=== PATIENT | female | born 1950 | race Caucasian/White ===

== ENCOUNTER → 2016-06-23 | Outpatient (CLI) | payer OTHER ==
--- NOTE | 2016-06-23 15:43 | MAMMOGRAPHY REPORT ---
BILATERAL DIGITAL SCREENING MAMMOGRAM WITH CAD: 06/23/2016 CLINICAL HISTORY: Routine screening. Patient has no complaints. TECHNIQUE: Bilateral CC and MLO views were obtained. Current study was also evaluated with a Comput er Aided Detection (CAD) system. COMPARISON: Comparison is made to exams dated: 05/24/2015 mammogram, 04/05/2014 mammogram, 02/14/2013 mammogram - [facility], 09/16/2009 mammogram, and 07/27/2008 mammogram. BREAST COMPOSITION: There are scattered areas of fibroglandular density in both breasts. FINDINGS: There are benign calcifications in the left breast. A lobulated and circumscribed 6 mm ma ss in the lower inner anterior left breast appears stable in size dating back to at least 09/16/2009 , therefore likely benign. No suspicious mass, architectural distortion or cluster of microcalcific ations is seen. IMPRESSION: ACR BI-RADS CATEGORY 1: NEGATIVE There is no mammographic evidence of malignancy. A 1 year screening mammogram is recommended. The p atient will receive written notification of the results. Approximately 10% of breast cancers are not detected with mammography. A negative mammographic repor t should not delay biopsy if a clinically suggestive mass is present. Jordyn Acevedo M.D. ay/:06/23/2016 15:20:02 Gasoline Service Attendant: Gabbi SHETTY)(Rebekah), [facility] letter sent: Normal 1/2 BI-RADS Code: ACR BI-RADS Category 1: Negative
== END | disposition home or self-care (01) ==
LOC: C.MAMM 09:45
PROVIDERS: ATTEND Internal Medicine
DX: Z12.31 Encounter for screening mammogram for malignant neoplasm of breast (principal)

== ENCOUNTER → 2016-07-28 | Outpatient (CLI) | payer OTHER | END | disposition home or self-care (01) | LOC: C.MAMM 12:49 | PROVIDERS: ATTEND Internal Medicine | DX: M81.0 Age-related osteoporosis without current pathological fracture (principal) ==

== ENCOUNTER → 2016-09-01 | Outpatient (CLI) | payer OTHER ==
[2016-09-01 10:36] LABS: CREATININE 0.88 mg/dl (0.60-1.20)
[2016-09-01 10:57] LABS: CALCIUM URINE < 5.0 mg/dl; URINE COLLECTION TIME 24 HOURS
[2016-09-02 20:53] LABS: ALBUMIN 4.4 G/DL (3.8-4.8); GAMMA GLOBULIN 0.9 G/DL (0.8-1.7); TOTAL PROTEIN 6.7 G/DL (6.2-8.3)
== END | disposition home or self-care (01) ==
LOC: C.LAB 09:21
PROVIDERS: ATTEND Internal Medicine Rheumatology
DX: E55.9 Vitamin D deficiency, unspecified (principal); M81.0 Age-related osteoporosis without current pathological fracture

== ENCOUNTER → 2016-10-07 | Outpatient (CLI) | payer OTHER ==
--- NOTE | 2016-10-07 15:15 | DIAGNOSTIC IMAGING REPORT ---
RIGHT ANKLE MIN 3 VIEWS ROUTINE CLINICAL HISTORY: M67.971 Achilles tendon disorder, right-sided soft tissue swelling COMPARISON: None. DISCUSSION: No fractures or dislocations are visualized. On the lateral view, there is suspected mild thickening of the Achilles. This may indicate an Achilles tendinopathy. IMPRESSION: Suspected mild thickening of the Achilles tendon. No bony abnormalities identified. Electronically signed by: Paul Anaya M.D. 10/07/2016 3:14 PM Dictated Date/Time: 10/07/2016 3:12 PM
== END | disposition home or self-care (01) ==
LOC: C.RAD1850 14:53
PROVIDERS: ATTEND Internal Medicine
DX: M67.971 Unspecified disorder of synovium and tendon, right ankle and foot (principal)

== ENCOUNTER → 2016-10-12 | Outpatient (CLI) | payer OTHER ==
--- NOTE | 2016-10-12 13:09 | DIAGNOSTIC IMAGING REPORT ---
EXTREMITY NONVASCULAR LIMITED CLINICAL HISTORY: M67.971 Achilles tendon disorder, right right achilles tendon TECHNIQUE: Ultrasound COMPARISON STUDY: 10/07/2016 FINDINGS: Moderate edematous change of the right Achilles tendon. This is seen over a linear extension of 2 cm superior to the calcaneus. This suggestive of tendinitis/tendinopathy. Simple edematous change may also present in this fashion. The does not appear to be tendinous disruption. IMPRESSION: Findings consistent with a focal tendinopathy/edematous change of the Achilles tendon. This study does not exclude the possibility of a partial intrasubstance tear. The above report was generated using voice recognition software. It may contain grammatical, syntax or spelling errors. Electronically signed by: Carlos Barkley M.D. 10/12/2016 1:08 PM Dictated Date/Time: 10/12/2016 1:04 PM
--- NOTE | 2016-10-16 13:08 | CODING QUERY MEDICAL NECESSITY ---
CQSUPPORTING DIAGNOSIS NEEDED A supporting diagnosis is required for the test/procedure performed on this patient in order for us to be reimbursed by the patient's insurance. Please provide a supporting diagnosis for the following test/procedure listed below next to the test name along with your signature. *If there is no additional diagnosis for this patient that would support the following test/procedure please document that below next to the test/procedure. Test(s)/Procedure(s) that require a supporting diagnosis: DOS 10/12/16 NON-VASCULAR EXTREMITY ULTRASOUND Provider Signature: Date: Thank you Mildred Gleason Health Information Management Once completed, please kindly fax back to [phone] For questions please call [phone]
== END | disposition home or self-care (01) ==
LOC: C.ULTR 12:32
PROVIDERS: ATTEND Internal Medicine
DX: M67.971 Unspecified disorder of synovium and tendon, right ankle and foot (principal); S86.011A Strain of right Achilles tendon, initial encounter; X58.XXXA Exposure to other specified factors, initial encounter

== ENCOUNTER → 2016-10-15 | Outpatient (CLI) | payer OTHER ==
--- NOTE | 2016-10-15 14:35 | DIAGNOSTIC IMAGING REPORT ---
RIGHT LOWER EXT JOINT WITHOUT CLINICAL HISTORY: 66 years-old Female presenting with RT ACHILLES TENDON,PARTIAL TEAR, no injury, deformity of distal ankle, marker on region of interest. TECHNIQUE: Multisequence, multiplanar MR imaging of the right ankle was performed without the use of intravenous contrast. IV contrast: None. COMPARISON: Plain radiographs of the right ankle from 10/07/2016. FINDINGS: Localizer images: Unremarkable. No bony edema. Ankle mortise intact. Degenerative change partially visualized at the first metatarsophalangeal joint. No other significant degenerative change. Previously noted mild apparent thickening of the Achilles tendon 3 to 4 cm proximal to the insertion at the posterior calcaneus is again noted there is however no abnormal signal intensity of the tendon to suggest tear. Minimal infiltration of Kager's fat pad. Posterior tendons including the tibialis posterior, flexor digitorum longus, and flexor hallucis longus intact. Anterior tendons including the tibialis anterior, extensor hallucis longus, and extensor digitorum longus intact. Peroneus brevis and longus tendons intact. Small volume ankle effusion. Cystic change posterior to the posterior talofibular ligaments likely ganglion cyst. Increased signal intensity at the fibular insertion of the posterior talofibular ligament without retraction. Anterior talofibular ligament intact. Deltoid ligament intact. No abnormal signal intensity within the sinus tarsi. No abnormal thickening of the plantar fascia. IMPRESSION: 1. Thickening without abnormal signal intensity of the Achilles tendon may suggest mild tendinosis. No partial or complete tear. 2. Partial tear of the posterior talofibular ligament at the fibular insertion site with associated posterior ganglion cyst. 3. Degenerative changes of the first metatarsophalangeal joint. Electronically signed by: Avni Nina M.D. 10/15/2016 2:34 PM Dictated Date/Time: 10/15/2016 2:16 PM
== END | disposition home or self-care (01) ==
LOC: C.MRI 13:18
PROVIDERS: ATTEND Internal Medicine
DX: M67.971 Unspecified disorder of synovium and tendon, right ankle and foot (principal); S86.011A Strain of right Achilles tendon, initial encounter; X58.XXXA Exposure to other specified factors, initial encounter

== ENCOUNTER → 2017-07-21 | Outpatient (CLI) | payer OTHER ==
--- NOTE | 2017-07-21 15:45 | MAMMOGRAPHY REPORT ---
BILATERAL DIGITAL SCREENING MAMMOGRAM TOMOSYNTHESIS WITH CAD: 07/21/2017 CLINICAL HISTORY: Routine screening. Patient has no complaints. TECHNIQUE: Breast tomosynthesis in addition to standard 2D mammography was performed. Current study was also evaluated with a Computer Aided Detection (CAD) system. COMPARISON: Comparison is made to exams dated: 06/23/2016 mammogram, 05/24/2015 mammogram, 04/05/2014 tana mogram, 02/14/2013 mammogram - [facility], 09/16/2009 mammogram, and 07/27/2008 mammog mukesh. BREAST COMPOSITION: There are scattered areas of fibroglandular density in both breasts. FINDINGS: No suspicious masses, calcifications, or areas of architectural distortion are noted in ei ther breast. There has been no significant interval change compared to prior exams. IMPRESSION: ACR BI-RADS CATEGORY 1: NEGATIVE There is no mammographic evidence of malignancy. A 1 year screening mammogram is recommended. The pa tient will receive written notification of the results. Approximately 10% of breast cancers are not detected with mammography. A negative mammographic report should not delay biopsy if a clinically suggestive mass is present. Henrietta Yañez M.D. ah/:07/21/2017 12:29:52 Senior Facilities Manager: Oumou PABON(Chelita)(M), [facility] letter sent: Normal 1/2 BI-RADS Code: ACR BI-RADS Category 1: Negative
== END | disposition home or self-care (01) ==
LOC: C.MAMM 12:07
PROVIDERS: ATTEND Internal Medicine
DX: Z12.31 Encounter for screening mammogram for malignant neoplasm of breast (principal)

== ENCOUNTER → 2017-08-03 | Outpatient (CLI) | payer OTHER ==
[2017-08-03 13:21] LABS: ALT/SGPT 25 U/L (12-78); BLOOD UREA NITROGEN 26 mg/dl (7-18); CALCIUM 9.1 mg/dl (8.5-10.1); CARBON DIOXIDE 28 mmol/L (21-32); CHOLESTEROL 219 mg/dl (0-200); CREATININE 0.86 mg/dl (0.60-1.20); GLUCOSE 89 mg/dl (70-99); POTASSIUM 4.2 mmol/L (3.5-5.1); SODIUM 140 mmol/L (136-145)
[2017-08-03 13:24] LABS: ALKALINE PHOSPHATASE 60 U/L (45-117); AST/SGOT 14 U/L (15-37); LDL CHOLESTEROL CALCULATED 144 mg/dl; TOTAL PROTEIN 7.4 gm/dl (6.4-8.2)
== END | disposition home or self-care (01) ==
LOC: C.LAB1850 09:01
PROVIDERS: ATTEND Internal Medicine
DX: M81.0 Age-related osteoporosis without current pathological fracture (principal); Z86.39 Personal history of other endocrine, nutritional and metabolic disease; R74.8 Abnormal levels of other serum enzymes; Z11.59 Encounter for screening for other viral diseases

== ENCOUNTER 2021-03-17 07:02 | Inpatient (IN) ==
[2021-03-17 07:42] LABS: Basophils # (auto) 0.03 K/uL (0-0.2); Basophils % (auto) 0.5 %; Eosinophils # (auto) 0.17 K/uL (0-0.5); Eosinophils % (auto) 2.6 %; Hematocrit (blood only) 41.7 % (37-47); Hemoglobin 13.8 g/dL (12.0-16.0); Immature Granulocytes # (auto) 0.02 K/uL (0.00-0.02); Immature Granulocytes % (auto) 0.3 %; Lymphocytes # (auto) 1.79 K/uL (1.2-3.4); Lymphocytes % (auto) 27.7 %; Mean Corpuscular Hemoglobin 30.5 pg (25-34); Mean Corpuscular Hgb Conc 33.1 g/dL (32-36); Mean Corpuscular Volume 92.3 fL (80-100); Mean Platelet Volume 11.6 fL (7.4-10.4); Monocytes # (auto) 0.35 K/uL (0.11-0.59); Monocytes % (auto) 5.4 %; Neutrophils # (auto) 4.11 K/uL (1.4-6.5); Neutrophils % (auto) 63.5 %; Platelet Count 159 K/uL (130-400); RDW Coefficient of Variation 13.2 % (11.5-14.5); RDW Standard Deviation 44.9 fL (36.4-46.3); Red Blood Count 4.52 M/uL (4.2-5.4); White Blood Count 6.47 K/uL (4.8-10.8)
[2021-03-17] MEDS ORDERED: SODIUM CHLORIDE 0.9% 1000ML 1,000 ML IV SCH (07:45)
--- NOTE | 2021-03-17 07:49 | Emergency Department Note ---
Impression & Plan Bradycardia, Mobitz type 2 second degree atrioventricular block, CHB (complete heart block) ED Provider Note INFORMANT: Patient and ED PROVIDER(S): Dada Harrington MD CHIEF COMPLAINT: Bradycardia PLAN: Disposition: Admitted Condition: Guarded Outpatient prescription management: None Referral: None MEDICAL DECISION MAKING: Patient presented because of bradycardia. ECG showed a type II block and monitoring revealed what appeared to be a complete heart block. The patient was tolerating this relatively well and was only mildly bradycardic. Consultation was placed emergently with [facility] cardiology. I discussed the case with Dr. Jamil. He agreed with the heart block and need for further management in the hospital. He feels the patient will need a pacemaker. The patient's laboratory testing was unremarkable including Lyme titer. consultation was made with Dr. Luke Quinones of the [facility] service. Patient was evaluated in the ER for further management. Triage Nursing notes reviewed and agree them. Vital Signs: reviewed and remarkable for no significant abnormalities Differential diagnosis: Premature contractions, electrolyte abnormality, cardiac dysrhythmia, thyroid dysfunction, pulmonary embolism, infection, gastrointestinal, Lyme disease, as well as other pathologies. Diagnostics interpreted by me: ECG: Twelve-lead ECG reveals a sinus bradycardia with a second-degree type II at [address] elevation or depression. No PVCs. Incomplete right bundle branch block present. Cardiac Monitoring: Cardiac monitoring ordered by me: The patient was placed on continuous cardiac monitoring and observed. It revealed a significant bradycardia with a second-degree type II transitioning to complete heart block and back. Imaging studies: Chest x-ray. Findings: A chest x-ray was performed and revealed no pneumothorax, effusion, infiltrate, pulmonary edema, free air under the diaphragm, or wide mediastinum. Impression: No acute disease. HPI: The patient is a 71 year old female who presents to the Emergency Room with complaints of bradycardia. This started about 2 weeks ago and is persisting. The patient also notes the following associated symptoms, exertional shortness of breath and lightheadedness. The patient has noted rest as factors. Current pain is rated as 0/10. Patient did note some chest heaviness this morning. Pt denies LOC, headache, fevers, chills, diaphoresis, visual changes, neck pain, chest pain, nausea, vomiting, abdominal pain, back pain, melena, hematochezia, urinary symptoms, numbness, weakness, lymphadenopathy, rash, or other complaints. ROS: See above HPI for pertinent positives & negatives. A total of 10 systems reviewed and were otherwise negative. PAST MEDICAL HISTORY:See Below , high cholesterol, valvular heart disease PAST SURGICAL HISTORY:See Below, FAMILY HISTORY:See Below SOCIAL HISTORY:See Below, HOME MEDICATIONS:See Below ALLERGIES:See Below VITALS:See Below PHYSICAL EXAMINATION: GENERAL: Awake, alert, well-appearing, in no distress HENT: Normocephalic, atraumatic. Oropharynx unremarkable. EYES: Normal conjunctiva. Sclera non-icteric. NECK: Inspection normal. Non-tender. Supple. No nuchal rigidity. FROM. No masses. RESPIRATORY: Clear to auscultation. No wheezes. No rales. Normal respiratory effort. CARDIAC: Normal rate. Normal rhythm. Systolic ejection murmur. No rubs. Extremities warm and well perfused. Pulses equal. No JVD. GI: Soft, non-distended. No tenderness to palpation. No rebound or guarding. No masses. RECTAL: Deferred. MUSCULOSKELETAL: Atraumatic. Chest examination reveals no tenderness. The back is symmetrical on inspection without obvious abnormality. There is no CVA tenderness to palpation. No joint edema. LOWER EXTREMITIES: Calves are equal size bilaterally and non-tender. No edema. No discoloration. NEURO: Normal sensorium. No sensory or motor deficits noted. SKIN: No rash or jaundice noted. Dada Harrington MD Past Med/Surg History Medical History (Updated 03/17/21 @ 16:01 by Dada Harrington MD) Acne Bilateral renal cysts Cyst of kidney, acquired Didelphic uterus Elevated alkaline phosphatase level History of hyperlipidemia Leg length discrepancy Nocturia Osteopenia Osteoporosis Osteoporosis Partial tear of right Achilles tendon Pharyngeal disease Spinal stenosis, lumbar region without neurogenic claudication Vitamin D deficiency Surgical History H/O lymph node excision History of arthroscopy of right knee meniscus repair History of cholecystectomy History of colonoscopy History of dilatation and curettage History of tonsillectomy History of wisdom tooth extraction Family History Aunt Breast cancer Father Myocardial infarction Hypertension Heart disease Brother Myocardial infarction Hypertension Heart disease Family/Other Myocardial infarction Mother Hearing loss Other No family history of adverse response to anesthesia Denies family history of Ovarian cancer Prostate cancer Colorectal cancer Social History Smoking Status: Never smoker Second Hand Exposure: No; Hx Alcohol Use: Yes Alcohol type: wine Alcohol Intake Frequency: 2-4 x/Month Hx Substance Use: No Preferred Language: [place] Communication Ability: Effective Visual Impairment: Diminished Hearing Ability: Normal 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 Required: No Beliefs That Will Affect Care: None marital status: Current Living Situation: Spouse current occupational status: retired Feels Safe at Home: Yes Childhood Exposure to Second-Hand Smoke: Yes caffeine: Yes Dental Care, Regularly: Yes Physical Activity Frequency: Daily Physical Activity Frequency Comment: garden and walking Seatbelt Use: always Sunscreen Use: Yes Do you think of yourself as: straight/heterosexual Assistive Devices: Glasses Allergies Allergies Allergy/AdvReac Type Severity Reaction Status Date / Time No Known Drug Allergies Allergy Verified 03/17/21 08:28 pineapple Allergy Verified 03/17/21 08:28 Home Meds Home Medications Medication Instructions Recorded Confirmed Ca 600 mg-D3 800 unit-magnes 40 1 tab PO HS 06/16/18 03/17/21 il-jode-rwl-aria-boron chewable tablet (Caltrate 600-D Plus Minerals) gmwzjxil-ncr-cmbp-FA-Ca carb-vit K 1 tab PO QAM 06/16/18 03/17/21 18 mg iron-400 mcg-500 mg tablet (Women's Multivitamin) metronidazole 0.75 % topical cream 1 applic TOPICAL BID PRN gm 02/22/20 03/17/21 krill oil 500 mg capsule 0 mg PO DAILY 03/17/21 03/17/21 Previous Rx's Medication Instructions Recorded rosuvastatin 5 mg tablet 5 mg PO DAILY #90 tab 07/24/20 ibandronate 150 mg tablet (Boniva) 150 mg PO MONTHLY #3 tab 08/30/20 Results & Data (ED) Vital Signs Vital Signs - 24 hr 03/17/21 07:08 03/17/21 07:35 03/17/21 08:30 Temperature 36.5 C Temperature Source Oral Pulse Rate 46 L 41 L Pulse Rate [Apical] 39 L Pulse Rhythm [Apical] Irregular Respiratory Rate 18 16 16 Respiratory Effort / Characteristics Non-Labored Respiratory Depth Normal Blood Pressure 200/73 H 178/66 H Blood Pressure [Right Arm] 197/83 H Blood Pressure Mean 115 103 Blood Pressure Mean [Right Arm] 121 Pulse Oximetry 98 100 98 Oxygen Delivery Method Room Air Room Air Room Air Sepsis Recent Fever Within 48 Hours No Sepsis New/Unexplained Change in Mental Status No Sepsis Action Taken by Nursing No Action Required 03/17/21 09:00 03/17/21 09:30 Temperature Temperature Source Pulse Rate 36 L Pulse Rate [Apical] 38 L Pulse Rhythm [Apical] Respiratory Rate 16 16 Respiratory Effort / Characteristics Non-Labored Respiratory Depth Normal Blood Pressure 165/62 H Blood Pressure [Right Arm] 129/80 Blood Pressure Mean 96 Blood Pressure Mean [Right Arm] 96 Pulse Oximetry 99 97 Oxygen Delivery Method Room Air Room Air Sepsis Recent Fever Within 48 Hours Sepsis New/Unexplained Change in Mental Status Sepsis Action Taken by Nursing Laboratory Data Result diagrams: 03/17/21 07:30 03/17/21 07:30 Lab Results 03/17/21 03/17/21 03/17/21 Range/Units 07:30 07:30 07:30 WBC 6.47 (4.8-10.8) K/uL RBC 4.52 (4.2-5.4) M/uL Hgb 13.8 (12.0-16.0) g/dL Hct 41.7 (37-47) % MCV 92.3 (80-100) fL MCH 30.5 (25-34) pg MCHC 33.1 (32-36) g/dL RDW Std Deviation 44.9 (36.4-46.3) fL RDW Coeff of Lesly 13.2 (11.5-14.5) % Plt Count 159 (130-400) K/uL MPV 11.6 H (7.4-10.4) fL Immature Gran % (Auto) 0.3 % Neut % (Auto) 63.5 % Lymph % (Auto) 27.7 % Boyd % (Auto) 5.4 % Eos % (Auto) 2.6 % Baso % (Auto) 0.5 % Neut # (Auto) 4.11 (1.4-6.5) K/uL Lymph # (Auto) 1.79 (1.2-3.4) K/uL Boyd # (Auto) 0.35 (0.11-0.59) K/uL Eos # (Auto) 0.17 (0-0.5) K/uL Baso # (Auto) 0.03 (0-0.2) K/uL Immature Gran # (Auto) 0.02 (0.00-0.02) K/uL Sodium 140 (136-145) mmol/L Potassium 4.1 (3.5-5.1) mmol/L Chloride 109 H (98-107) mmol/L Carbon Dioxide 27 (21-32) mmol/L Anion Gap 4.0 (3-11) BUN 23 H (7-18) mg/dl Creatinine 1.02 (0.6-1.2) mg/dl Est Cr Clr Drug Dosing 41.2 ml/min Est GFR ( Amer) 63.6 ml/min Est GFR (Non-Af Amer) 54.9 ml/min BUN/Creatinine Ratio 22.6 H (10-20) Glucose 100 H (70-99) mg/dl Calcium 9.8 (8.5-10.1) mg/dl Magnesium 2.6 H (1.8-2.4) mg/dl Total Bilirubin 0.6 (0.2-1) mg/dl AST 53 H (15-37) U/L ALT 114 H (12-78) Alkaline Phosphatase 82 (45-117) U/L Troponin I < 0.015 (0-0.045) ng/ml Total Protein 7.6 (6.4-8.2) gm/dl Albumin 4.2 (3.4-5.0) gm/dl Globulin 3.4 (2.5-4.0) gm/dl Albumin/Globulin Ratio 1.2 (0.9-2) TSH 1.490 (0.300-4.500) uIu/ml Urine Color Urine Appearance (Clear) Urine pH (4.5-7.5) Ur Specific Haskins (1.000-1.030) Urine Protein (Negative) Urine Glucose (UA) (Negative) Urine Ketones (Negative) Urine Blood (Negative) Urine Nitrite (Negative) Urine Bilirubin (Negative) Urine Urobilinogen (Negative) Ur Leukocyte Esterase (Negative) Lyme Disease IgG Ab Negative (Negative) Lyme Disease IgM Ab Negative (Negative) SARS-CoV-2, RNA, NAAT (NEGATIVE) 12/27/21 12/27/21 Range/Units 07:40 09:05 WBC (4.8-10.8) K/uL RBC (4.2-5.4) M/uL Hgb (12.0-16.0) g/dL Hct (37-47) % MCV (80-100) fL MCH (25-34) pg MCHC (32-36) g/dL RDW Std Deviation (36.4-46.3) fL RDW Coeff of Lesly (11.5-14.5) % Plt Count (130-400) K/uL MPV (7.4-10.4) fL Immature Gran % (Auto) % Neut % (Auto) % Lymph % (Auto) % Boyd % (Auto) % Eos % (Auto) % Baso % (Auto) % Neut # (Auto) (1.4-6.5) K/uL Lymph # (Auto) (1.2-3.4) K/uL Boyd # (Auto) (0.11-0.59) K/uL Eos # (Auto) (0-0.5) K/uL Baso # (Auto) (0-0.2) K/uL Immature Gran # (Auto) (0.00-0.02) K/uL Sodium (136-145) mmol/L Potassium (3.5-5.1) mmol/L Chloride (98-107) mmol/L Carbon Dioxide (21-32) mmol/L Anion Gap (3-11) BUN (7-18) mg/dl Creatinine (0.6-1.2) mg/dl Est Cr Clr Drug Dosing ml/min Est GFR ( Amer) ml/min Est GFR (Non-Af Amer) ml/min BUN/Creatinine Ratio (10-20) Glucose (70-99) mg/dl Calcium (8.5-10.1) mg/dl Magnesium (1.8-2.4) mg/dl Total Bilirubin (0.2-1) mg/dl AST (15-37) U/L ALT (12-78) Alkaline Phosphatase (45-117) U/L Troponin I (0-0.045) ng/ml Total Protein (6.4-8.2) gm/dl Albumin (3.4-5.0) gm/dl Globulin (2.5-4.0) gm/dl Albumin/Globulin Ratio (0.9-2) TSH (0.300-4.500) uIu/ml Urine Color Yellow Urine Appearance Clear (Clear) Urine pH 8.0 H (4.5-7.5) Ur Specific Haskins 1.008 (1.000-1.030) Urine Protein Negative (Negative) Urine Glucose (UA) Negative (Negative) Urine Ketones Negative (Negative) Urine Blood Negative (Negative) Urine Nitrite Negative (Negative) Urine Bilirubin Negative (Negative) Urine Urobilinogen Negative (Negative) Ur Leukocyte Esterase Negative (Negative) Lyme Disease IgG Ab (Negative) Lyme Disease IgM Ab (Negative) SARS-CoV-2, RNA, NAAT NEGATIVE (NEGATIVE) Administered Medications Discontinued Medications Cefazolin Sodium (Cefazolin 250 Mg/Ml 1 Gm Vial) Confirm Administered Dose 1,000 mg .ROUTE .STK-MED ONE Stop: 03/17/21 10:50 Last Admin: 03/17/21 11:58 Dose: 1,000 mg Documented by: [id number] Fentanyl Citrate (Fentanyl Citrate 100 Mcg/2 Ml Vial) Confirm Administered Dose 100 mcg .ROUTE .STK-MED ONE Stop: 03/17/21 10:50 Last Admin: 03/17/21 11:58 Dose: 100 mcg Documented by: [id number] Sodium Chloride (Nss 1000ml) 1,000 mls @ 125 mls/hr IV .Q8H ERASMO Stop: 03/17/21 15:44 Last Admin: 03/17/21 07:50 Dose: 125 mls/hr Documented by: [id number] Midazolam HCl (Midazolam Hcl 5 Mg/Ml 1 Ml Vial) Confirm Administered Dose 5 mg .ROUTE .STK-MED ONE Stop: 03/17/21 10:50 Last Increment: 03/17/21 11:58 Dose: 4 mg Documented by: [id number] Imaging Data Radiologist's Impression: Chest X-Ray 03/17/21 07:32 XR chest 1V portable CLINICAL HISTORY: bradycardia COMPARISON STUDY: No previous studies for comparison. FINDINGS: Lung volumes are normal. Lungs are clear. A nodular density projecting over the left lower lung favors a nipple shadow. There is no pneumothorax or pleural effusion. Cardiac size is normal. Mediastinal contours are normal. There is no evidence for pulmonary edema. IMPRESSION: No acute cardiopulmonary findings. ACT 112: Negative or not required by law. Electronically signed by: Radu Allison M.D. 03/17/2021 7:52 AM Discharge Plan Visit Data Chief Complaint: Hypotension Stated Complaint: LOW BLOOD PRESSURE,LOW PULSE,TROUBLE BREATHING ED Provider: Dada Harrington Discharge Problem: Bradycardia, Mobitz type 2 second degree atrioventricular block, CHB (complete heart block) Patient Disposition: Admitted As Inpatient
--- NOTE | 2021-03-17 07:54 | XRay Report ---
XR chest 1V portable CLINICAL HISTORY: bradycardia COMPARISON STUDY: No previous studies for comparison. FINDINGS: Lung volumes are normal. Lungs are clear. A nodular density projecting over the left lower lung favors a nipple shadow. There is no pneumothorax or pleural effusion. Cardiac size is normal. Me diastinal contours are normal. There is no evidence for pulmonary edema. IMPRESSION: No acute cardiopulmonary findings. ACT 112: Negative or not required by law. Electronically signed by: Radu Allison M.D. 03/17/2021 7:52 AM
[2021-03-17 08:00] LABS: Alanine Aminotransferase 114 (12-78); Albumin Level 4.2 gm/dl (3.4-5.0); Aspartate Aminotransferase 53 U/L (15-37); BUN Creatinine Ratio 22.6 (10-20); Blood Urea Nitrogen 23 mg/dl (7-18); Calcium 9.8 mg/dl (8.5-10.1); Carbon Dioxide 27 mmol/L (21-32); Chloride 109 mmol/L (98-107); Creatinine Clr Calc Pharmacy 41.2 ml/min; Est GFR (African American) 63.6 ml/min; Est GFR (Non-African American) 54.9 ml/min; Glucose 100 mg/dl (70-99); Magnesium 2.6 mg/dl (1.8-2.4); Potassium 4.1 mmol/L (3.5-5.1); Sodium 140 mmol/L (136-145)
[2021-03-17 08:11] LABS: Albumin Globulin Ratio 1.2 (0.9-2); Alkaline Phosphatase 82 U/L (45-117); Bilirubin,Total 0.6 mg/dl (0.2-1); Globulin 3.4 gm/dl (2.5-4.0); Total Protein 7.6 gm/dl (6.4-8.2); Troponin I < 0.015 ng/ml (0-0.045)
[2021-03-17 08:27] LABS: Lyme Ab IgG w/WB Rflx Negative (Negative); Lyme Ab IgM w/WB Rflx Negative (Negative)
[2021-03-17 09:33] LABS: Appearance Urine Clear (Clear); Bilirubin Urine Negative (Negative); Blood Urine Negative (Negative); Color Urine Yellow; Glucose Urine UA Negative (Negative); Ketones Urine Negative (Negative); Leukocyte Esterase Urine Negative (Negative); Nitrite Urine Negative (Negative); Protein Urine Negative (Negative); Specific Gravity Urine 1.008 (1.000-1.030); Urobilinogen Urine Negative (Negative)
--- NOTE | 2021-03-17 09:43 | History & Physical Report ---
Date of Service March 17, 2021 Assessment & Plan (1) Bradycardia: Plan: mobitz II and some complete heart block, pt was eval by interventional cardiology and will have pacemaker 03/17/21. thyroid and lyme negative electrolytes replete (2) Hyperlipidemia: Plan: typically on Crestor History of Present Illness Primary Care Provider: Avni Gibbs MD 71 year old female who presents to the Emergency Room with complaints of bradycardia. This started about 2 weeks ago and is persisting. The patient also notes exertional shortness of breath and lightheadedness. Patient did note some chest heaviness on the morning of admission that has resolved. Pt denies LOC, headache, fevers, chills, diaphoresis, visual changes, neck pain, chest pain, nausea, vomiting, abdominal pain, back pain, melena, hematochezia, urinary symptoms, numbness, weakness, lymphadenopathy, rash, or other complaints . Lyme testing is negative, tsh is normal Allergies Allergy/AdvReac Type Severity Reaction Status Date / Time No Known Drug Allergies Allergy Verified 03/17/21 08:28 pineapple Allergy Verified 03/17/21 08:28 Home Medications Medication Instructions Recorded Confirmed Type Ca 600 mg-D3 800 unit-magnes 40 1 tab PO HS 06/16/18 03/17/21 History ns-eqks-ggn-aria-boron chewable tablet (Caltrate 600-D Plus Minerals) kioanieo-huy-ztlp-FA-Ca carb-vit K 1 tab PO QAM 06/16/18 03/17/21 History 18 mg iron-400 mcg-500 mg tablet (Women's Multivitamin) metronidazole 0.75 % topical cream 1 applic TOPICAL BID PRN gm 02/22/20 03/17/21 History rosuvastatin 5 mg tablet 5 mg PO DAILY #90 tab 07/24/20 03/17/21 Rx ibandronate 150 mg tablet (Boniva) 150 mg PO MONTHLY #3 tab 08/30/20 03/17/21 Rx krill oil 500 mg capsule 0 mg PO DAILY 03/17/21 03/17/21 History Past Med/Surg History Medical History (Updated 03/17/21 @ 17:15 by Adria Jamil MD) Acne Bilateral renal cysts Cyst of kidney, acquired Didelphic uterus Elevated alkaline phosphatase level History of hyperlipidemia Leg length discrepancy Nocturia Osteopenia Osteoporosis Osteoporosis Partial tear of right Achilles tendon Pharyngeal disease Spinal stenosis, lumbar region without neurogenic claudication Vitamin D deficiency Surgical History H/O lymph node excision History of arthroscopy of right knee meniscus repair History of cholecystectomy History of colonoscopy History of dilatation and curettage History of tonsillectomy History of wisdom tooth extraction Family History Aunt Breast cancer Father Myocardial infarction Hypertension Heart disease Brother Myocardial infarction Hypertension Heart disease Family/Other Myocardial infarction Mother Hearing loss Other No family history of adverse response to anesthesia Denies family history of Ovarian cancer Prostate cancer Colorectal cancer Social History Smoking Status: Never smoker Second Hand Exposure: No; Hx Alcohol Use: Yes Alcohol type: wine Alcohol Intake Frequency: 2-4 x/Month Hx Substance Use: No Preferred Language: Telugu Communication Ability: Effective Visual Impairment: Diminished Hearing Ability: Normal [employer] Required: No Beliefs That Will Affect Care: None marital status: Current Living Situation: Spouse current occupational status: retired Feels Safe at Home: Yes Childhood Exposure to Second-Hand Smoke: Yes caffeine: Yes Dental Care, Regularly: Yes Physical Activity Frequency: Daily Physical Activity Frequency Comment: garden and walking Seatbelt Use: always Sunscreen Use: Yes Do you think of yourself as: straight/heterosexual Assistive Devices: Glasses Review of Systems Review of Systems: Moderate distress and fatigue no headache, no visual changes no speech or swallowing issues Resolution of chest pain, no continued pressure or palpitations no shortness of breath at rest but some ISABEL, no cough or wheezes no abdominal pain, nausea or vomiting, diarrhea or constipation no dysuria, hematuria or frequency no focal joint pain or swelling no back pain, CVA tenderness or radicular pain no bruising, bleeding or rashes no focal signs of weakness or numbness or altered sensation no complaints of anxiety or depression.. Physical Exam Physical Exam: The patient appeared well nourished and normally developed. Vital signs as documented. Head exam is normocephalic atraumatic Neck is without JVD, thyromegaly, or carotid bruits. Lungs are clear to auscultation, no focal loss of breath sounds Cardiac exam, significantly slow rate. No murmurs, rubs or gallops. Abdominal exam reveals normal bowel sounds, soft non tender, no masses Extremities are nonedematous and both pedal pulses are present Neurologic exam is alert and oriented, no focal loss of strength or sensation Skin is without bruises or rashes Psychologically is without concerns for anxiety or depression.. Results & Data Results & Data ([facility]) Vital Signs (Past 12 Hours) Vital Signs Temp Pulse Pulse Resp BP BP Pulse Ox 03/17/21 09:00 38 L 16 129/80 99 03/17/21 08:30 41 L 16 178/66 H 98 03/17/21 07:35 39 L 16 197/83 H 100 03/17/21 07:08 97.7 F 46 L 18 200/73 H 98 PG Care Time/CCT Total # of Minutes Spent Total Time Spent with Patient: Total time spent is greater than 50% in coordination of care (as documented) at patient's floor/unit and/or counseling patient: Coding Level of Care Code 53834 Initial Inpt Care Lvl 2 Diagnoses Bradycardia R00.1 Hyperlipidemia E78.5
--- NOTE | 2021-03-17 10:20 | Cardiology Consultation ---
Date of Consultation March 17, 2021 Assessment & Plan (1) CHB (complete heart block): (2) Valvular heart disease: 1. Complete heart block: An EKG obtained the emergency room did demonstrate high-degree AV block. Most of the time and rhythm with 2-1 av block. She did report exertional intolerance which is more consistent with Mobitz 2 conduction. Lyme test was negative. It seems that she has significant AV luz marina disease causing symptomatic bradycardia. We discussed the options for treatment which generally involves a permanent pacemaker. I described the procedure in attendant risks to the patient and her and were willing to proceed later today. 2. Valvular heart disease: Mild. No symptoms. Normal LV systolic function. This can be followed over time. 3. Hyperlipidemia: Recently started on rosuvastatin. 4. Hypertension: Blood pressure high in the emergency room. Will monitor this during her admission. History of Present Illness Reason for Consultation: Bradycardia, exercise intolerance Requesting Physician: Juany Attending Physician: Joni History of Present Illness The patient is a 71-year-old woman with a history of mild valvular heart disease presented to the emergency room with symptoms of exertional intolerance. Patient states that over the past couple of days she has had some difficulty completing even minor activities. She is normally an active individual who is accustomed to routine work outside. She is able to at ascend hills and stairs without significant limitation. However, over the course of the weekend she became quite dyspneic with similar activities and had reduce her overall activity level. This more she also had some symptoms of dizziness. She was noted on monitoring at home to have a low heart rate and subsequent went to the emergency room for evaluation. At rest she is generally feeling well. She did report a sense of chest pressure earlier this morning. However this was fairly well localized to the precordium and was reproducible in nature. No breathing difficulty at rest. No sense of palpitation. Allergies Allergy/AdvReac Type Severity Reaction Status Date / Time No Known Drug Allergies Allergy Verified 03/17/21 08:28 pineapple Allergy Verified 03/17/21 08:28 Home Medications Medication Instructions Recorded Confirmed Type Ca 600 mg-D3 800 unit-magnes 40 1 tab PO HS 06/16/18 03/17/21 History vz-vllf-mqi-aria-boron chewable tablet (Caltrate 600-D Plus Minerals) xjlatlhs-iip-pgva-FA-Ca carb-vit K 1 tab PO QAM 06/16/18 03/17/21 History 18 mg iron-400 mcg-500 mg tablet (Women's Multivitamin) metronidazole 0.75 % topical cream 1 applic TOPICAL BID PRN gm 02/22/20 03/17/21 History rosuvastatin 5 mg tablet 5 mg PO DAILY #90 tab 07/24/20 03/17/21 Rx ibandronate 150 mg tablet (Boniva) 150 mg PO MONTHLY #3 tab 08/30/20 03/17/21 Rx krill oil 500 mg capsule 0 mg PO DAILY 03/17/21 03/17/21 History Patient History Medical History (Updated 03/17/21 @ 17:15 by Adria Jamil MD) Acne Bilateral renal cysts Cyst of kidney, acquired Didelphic uterus Elevated alkaline phosphatase level History of hyperlipidemia Leg length discrepancy Nocturia Osteopenia Osteoporosis Osteoporosis Partial tear of right Achilles tendon Pharyngeal disease Spinal stenosis, lumbar region without neurogenic claudication Vitamin D deficiency Surgical History H/O lymph node excision History of arthroscopy of right knee meniscus repair History of cholecystectomy History of colonoscopy History of dilatation and curettage History of tonsillectomy History of wisdom tooth extraction Family History Aunt Breast cancer Father Myocardial infarction Hypertension Heart disease Brother Myocardial infarction Hypertension Heart disease Family/Other Myocardial infarction Mother Hearing loss Other No family history of adverse response to anesthesia Denies family history of Ovarian cancer Prostate cancer Colorectal cancer Social History Smoking Status: Never smoker Second Hand Exposure: No; Hx Alcohol Use: Yes Alcohol type: wine Alcohol Intake Frequency: 2-4 x/Month Hx Substance Use: No Preferred Language: Lao Communication Ability: Effective Visual Impairment: Diminished Hearing Ability: Normal Technology Internship Required: No Beliefs That Will Affect Care: None marital status: Current Living Situation: Spouse current occupational status: retired Feels Safe at Home: Yes Childhood Exposure to Second-Hand Smoke: Yes caffeine: Yes Dental Care, Regularly: Yes Physical Activity Frequency: Daily Physical Activity Frequency Comment: garden and walking Seatbelt Use: always Sunscreen Use: Yes Do you think of yourself as: straight/heterosexual Assistive Devices: Glasses Review of Systems Review of Systems: Per HPI. No recent fevers or chills. No rashes. Some mild arthritis in the hands but no worsening joint pain recently. No lower extremity edema. Physical Exam Physical Exam: She is alert and oriented x3. Mood affect appear normal. She answered all questions appropriately. HEENT: Sclerae are anicteric. Pupils are equal and reactive to light and accommodation. Extraocular movements were intact. Neuro: Cranial nerves intact Lungs: Lungs are clear to auscultation bilaterally. There are no rales wheezes or rhonchi. She has normal respiratory effort without use of accessory muscles. There is normal pulmonary excursion. Cardiac: The rhythm was regular. S1 and S2 were normal. Crescendo systolic murmur that radiated throughout the precordium The PMI was not markedly displaced on palpation. Abdomen: The abdomen was soft and nontender. Extremities: Patient has bilateral radial pulses that are equal in intensity. There is no evidence cyanosis or clubbing. There was no evidence of significant peripheral edema bilaterally. Skin: There are no rashes noted on examination today. Results & Data ([facility]) Vital Signs (Past 12 Hours) Vital Signs Temp Pulse Pulse Resp BP BP Pulse Ox 03/17/21 10:00 38 L 16 97 03/17/21 09:30 36 L 16 165/62 H 97 03/17/21 09:00 38 L 16 129/80 99 03/17/21 08:30 41 L 16 178/66 H 98 03/17/21 07:35 39 L 16 197/83 H 100 03/17/21 07:08 36.5 C 46 L 18 200/73 H 98 Laboratory Results Abnormal Lab Results 03/17/21 03/17/21 03/17/21 07:30 07:30 07:30 WBC 6.47 RBC 4.52 Hgb 13.8 Hct 41.7 MCV 92.3 MCH 30.5 MCHC 33.1 RDW Std Deviation 44.9 RDW Coeff of Lesly 13.2 Plt Count 159 MPV 11.6 H Immature Gran % (Auto) 0.3 Neut % (Auto) 63.5 Lymph % (Auto) 27.7 Sharkey % (Auto) 5.4 Eos % (Auto) 2.6 Baso % (Auto) 0.5 Neut # (Auto) 4.11 Lymph # (Auto) 1.79 Sharkey # (Auto) 0.35 Eos # (Auto) 0.17 Baso # (Auto) 0.03 Immature Gran # (Auto) 0.02 Sodium 140 Potassium 4.1 Chloride 109 H Carbon Dioxide 27 Anion Gap 4.0 BUN 23 H Creatinine 1.02 Est Cr Clr Drug Dosing 41.2 Est GFR ( Amer) 63.6 Est GFR (Non-Af Amer) 54.9 BUN/Creatinine Ratio 22.6 H Glucose 100 H Calcium 9.8 Magnesium 2.6 H Total Bilirubin 0.6 AST 53 H ALT 114 H Alkaline Phosphatase 82 Troponin I < 0.015 Total Protein 7.6 Albumin 4.2 Globulin 3.4 Albumin/Globulin Ratio 1.2 TSH 1.490 Urine Color Urine Appearance Urine pH Ur Specific [place]ec[place] Urine Protein Urine Glucose (UA) Urine Ketones Urine Blood Urine Nitrite Urine Bilirubin Urine Urobilinogen Ur Leukocyte Esterase Lyme Disease IgG Ab Negative Lyme Disease IgM Ab Negative SARS-CoV-2, RNA, NAAT 03/17/21 03/17/21 07:40 09:05 WBC RBC Hgb Hct MCV MCH MCHC RDW Std Deviation RDW Coeff of Lesly Plt Count MPV Immature Gran % (Auto) Neut % (Auto) Lymph % (Auto) Sharkey % (Auto) Eos % (Auto) Baso % (Auto) Neut # (Auto) Lymph # (Auto) Sharkey # (Auto) Eos # (Auto) Baso # (Auto) Immature Gran # (Auto) Sodium Potassium Chloride Carbon Dioxide Anion Gap BUN Creatinine Est Cr Clr Drug Dosing Est GFR ( Amer) Est GFR (Non-Af Amer) BUN/Creatinine Ratio Glucose Calcium Magnesium Total Bilirubin AST ALT Alkaline Phosphatase Troponin I Total Protein Albumin Globulin Albumin/Globulin Ratio TSH Urine Color Yellow Urine Appearance Clear Urine pH 8.0 H Ur Specific [place] 1.008 Urine Protein Negative Urine Glucose (UA) Negative Urine Ketones Negative Urine Blood Negative Urine Nitrite Negative Urine Bilirubin Negative Urine Urobilinogen Negative Ur Leukocyte Esterase Negative Lyme Disease IgG Ab Lyme Disease IgM Ab SARS-CoV-2, RNA, NAAT NEGATIVE Diagnostic Findings Chest x-ray obtained the time admission not reveal any acute cardiopulmonary findings Echocardiogram performed 07/29/2020 revealed normal LV systolic function with ejection fraction greater than 70%. Mild aortic stenosis. Moderate aortic regurgitation. Mild mitral regurgitation. EKG obtained the time admission revealed 2-1 av block with incomplete right bundle branch block. PG Care Time/CCT Total # of Minutes Spent Total Time Spent with Patient: Total time spent is greater than 50% in coordination of care (as documented) at patient's floor/unit and/or counseling patient: Coding Level of Care Code 94874 Initial Inpt Care Lvl 3 Diagnoses CHB (complete heart block) I44.2 Valvular heart disease I38
--- NOTE | 2021-03-17 10:20 | Pre Anesthesia Assessment ---
Date of Service March 17, 2021 Pre Sedation Assessment Vital Signs Temp Pulse Pulse Resp BP BP Pulse Ox 03/17/21 10:00 38 L 16 97 03/17/21 09:30 36 L 16 165/62 H 97 03/17/21 09:00 38 L 16 129/80 99 03/17/21 08:30 41 L 16 178/66 H 98 03/17/21 07:35 39 L 16 197/83 H 100 03/17/21 07:08 36.5 C 46 L 18 200/73 H 98 Cardiovascular + bradycardic + murmur Respiratory + respiratory effort normal Pre-Sedation Airway Assessment Smoking Status: Never smoker Hx Sleep Apnea: No Hx Difficult Intubation: No Short, Thick Neck: No Thyromental Distance: > or= 3.5 Finger Breadths Oral Cavity: + WNL Mallampati Class: III ASA: ASA3 Procedure Planning Contraindications for Sedation: none Current Medications Reviewed: Yes Notes The planned sedation has been discussed with the patient. Informed Consent was obtained. I have identified the patient, determined the appropriateness of sedation and have assessed the patient immediately prior to the procedure. All medicine(s) and interventions are by my order.
[2021-03-17] MEDS ORDERED: MIDAZOLAM HCL 5 MG/ML 1 ML VIAL ONE (10:49)
[2021-03-17] MEDS ORDERED: fentaNYL citrate 100 MCG/2 ML VIAL ONE (10:49)
--- NOTE | 2021-03-17 11:57 | Post Anesthesia Assessment ---
Date of Service March 17, 2021 Post Sedation Assessment Vital Signs Temp Pulse Pulse Resp BP BP Pulse Ox 03/17/21 10:00 38 L 16 97 03/17/21 09:30 36 L 16 165/62 H 97 03/17/21 09:00 38 L 16 129/80 99 03/17/21 08:30 41 L 16 178/66 H 98 03/17/21 07:35 39 L 16 197/83 H 100 03/17/21 07:08 36.5 C 46 L 18 200/73 H 98 Recovery Score Activity: Moves 4 extremities Respiration: Deep Breath/Cough Circulation: +/-20% PreAnes Value Consciousness: Fully Awake Oxygen Saturation: > 92% On Room Air Discharge Sedation Level of Care: Fast Track Phase II Post Sedation Plan On clinical assessment, the patient appears to have tolerated the sedation without complications. Patient is recovering as anticipated. Patient will continue to be monitored by nursing and may be discharged when sedation discharge criteria are met per below protocol. Upon Completions of procedure up to 15 minutes continue every 5 minute vital signs and the P.A.R. score; then discharge to a Phase I or Fast Track to Phase II per the following guidelines: * Discharge Patient to appropriate Phase II area if PAR is 8 or greater or return to pre- procedure baseline. The post - procedure orders will be as directed. * If PAR score is less than 8 or not return to pre-procedure baseline then patient will follow Phase I monitoring till PAR is reached for Phase II. The Phase I may be done in procedure room or may call to secure a Phase I area. * If naloxone or flumazenil are used for reversal, hold in Phase I for continued monitoring from when last reversal dose was given for a minimum of 6 0 minutes or longer pending the nurse and/or physician discretion of patient condition before discharge to Phase II. Please call the Sedation Physician to re-evaluate and complete post-note for discharge to Phase II area. Do NOT discharge from procedure sedation or Phase 1 until post- sedation evaluation note is complete by procedure /sedation MD Sedation Discharge Instructions to be given to the patient at discharge to home.
[2021-03-17] MEDS ORDERED: ACETAMINOPHEN 325 MG TAB PO PRN (11:58)
[2021-03-17] MEDS ORDERED: oxyCODONE HCL IR 5 MG TAB (IMMEDIATE RELEASE) PO PRN (11:58)
--- NOTE | 2021-03-17 11:58 | Electrophysiology Report ---
Date of Service March 17, 2021 Electrophysiology Procedure Electrophysiology Procedure Report Procedure performed: Implantation of dual-chamber permanent pacemaker Staff sand caster apprentice: Slade Jamil MD Indication: The patient is a 71-year-old woman without a known history of ca rdiac disease who presented with symptomatic bradycardia due to nonreversible AV node dysfunction. Procedure in detail: The patient was informed of the risks benefits and alternatives to the intended procedure and she wished to proceed. She was taken to the electrophysiology suite in a fasting state. A preoperative antibiotic had been administered. The patient was monitored electrocardiographically throughout today's procedure and conscious sedation was administered per protocol. The left upper pectoral area is prepped and draped in usual sterile fashion. This area was anesthetized using subcutaneous administration of a xylocaine solution. An incision was made at this site and carried down to the prepectoralis fascia using sharp dissection. Electrocautery was also employed for dissection as well as for hemostasis. A device pocket was fashioned tissues above the pectoralis muscle. Subsequent to this maneuver the left axillary vein was accessed using modified Seldinger technique. Sheath was placed over a guidewire and used to facilitate passage of the guiding catheter for delivery of a septal pacing lead. Adequate waveforms were obtained prior to active fixation of the lead to the interventricular septum. Adequate thresholds and sensing were obtained prior to removal of the guiding catheter. Sheath was placed over the second guidewire and used to facilitate passage of a lead to the right atrium under fluoroscopic guidance. Active fixation was performed and adequate sensing and threshold parameters were obtained prior to removal of the sheath. The proximal portion of the leads were then sutured the prepectoral fascia using nonabsorbable suture. The device pocket was irrigated with antibiotic solution. The leads were then attached to the device. The device and leads were then placed in the pocket and pocket was closed in 3 layers of absorbable suture. Steri-Strips and sterile dressing were applied. The device was tested noninvasively prior to conclusion the procedure. The patient tolerated procedure well there no immediate complications. Equipment used: New pulse generator: Export Clerk [employer]tr[employer]. Model number: [id number] serial number [id number] Right atrial lead: Export Clerk [employer]. Model number: [id number] serial number [id number] Right ventricular (left bundle) lead: Export Clerk [employer]. Model number: [id number] serial number [id number] Measured data: Right atrial lead: P waves measured 2 mV. Pacing threshold 1.25 V at 0.4 ms with a pacing impedance of 532 ohms Right ventricular (left bundle) lead: R waves measured 8.6 mV. Pacing threshold was 0.75 V at 0.4 ms with a pacing impedance of 817 ohms Impression: Successful implantation of dual-chamber permanent pacemaker with left bundle pacing lead [facility] Electrophysiology codes Pacing Procedure 1: Pacin Insert/Replace Pacer A & V PG Moderate Sedation Codes Moderate Sedation Codes Procedure 1: Sedation/Anesthesia: 99895 Mod Sedation by the same physician;Init15 Min Child Age 5 & Up Procedure 2: Sedation/Anesthesia: 28908 Mod Sedation by the same physician; Ea [id number] Minutes
[2021-03-17] MEDS ORDERED: LIDOCAINE 1% LOCAL 20 ML VIAL ONE ×2 (12:09→12:11)
[2021-03-17] MEDS ORDERED: VANCOMYCIN HCL 1000MG/20ML VIAL ONE (12:10)
[2021-03-17] MEDS ORDERED: BUPIVACAINE 0.25% 30 ML VIAL ONE ×2 (12:10→12:11)
[2021-03-17] MEDS ORDERED: WATER, STERILE FOR INJ 10 ML VIAL ONE (12:10)
--- NOTE | 2021-03-17 13:41 | Electrocardiogram Report ---
Test Reason : Blood Pressure : / mmHG Vent. Rate : 039 BPM Atrial Rate : 039 BPM P-R Int : 080 ms QRS Dur : 110 ms QT Int : 494 ms P-R-T Axes : 000 068 007 degrees QTc Int : 397 ms Sinus rhythm with 3rd degree AV block Incomplete right bundle branch block Nonspecific ST abnormality Abnormal ECG When compared with ECG of 17-MAR-2021 07:12, (unconfirmed) ST now depressed in Inferior leads ST now depressed in Anterior leads QT has shortened Confirmed by Slade Jamil ([id number]) on 03/17/2021 1:41:43 PM Referred By: REFERRED SELF Confirmed By:Rayshawn Jamil
--- NOTE | 2021-03-17 13:43 | Electrocardiogram Report ---
Test Reason : Blood Pressure : / mmHG Vent. Rate : 046 BPM Atrial Rate : 046 BPM P-R Int : 202 ms QRS Dur : 110 ms QT Int : 538 ms P-R-T Axes : 076 013 059 degrees QTc Int : 470 ms Poor data quality, interpretation may be adversely affected Sinus rhythm with 2:1 AV block Incomplete right bundle branch block Borderline ECG No previous ECGs available Confirmed by Slade Jamil ([id number]) on 03/17/2021 1:42:34 PM Referred By: REFERRED SELF Confirmed By:Rayshawn Jamil
--- NOTE | 2021-03-17 14:53 | Communication Note ---
Date of Service: March 17, 2021 I saw the patient with Dr. Harrington, please see their note for details. Resident Activity Tracking Resident Involvement: Resident Care Provided Care Provided: Adult ED
[2021-03-17] MEDS ORDERED: ALUMINUM/MAGNESIUM SUSP 30 ML UDC PO PRN (17:27)
[2021-03-17] MEDS: ACETAMINOPHEN 325 MG TAB PO PRN (18:26)
[2021-03-17] MEDS: ceFAZolin 1000MG 1,000 MG/7.5 ML SYR IV SCH (21:00)
[2021-03-18] MEDS: ACETAMINOPHEN 325 MG TAB PO PRN (03:32)
[2021-03-18] MEDS: ceFAZolin 1000MG 1,000 MG/7.5 ML SYR IV SCH (03:33)
[2021-03-18 07:36] LABS: Hematocrit (blood only) 41.1 % (37-47); Hemoglobin 13.8 g/dL (12.0-16.0); Mean Corpuscular Hemoglobin 30.4 pg (25-34); Mean Corpuscular Hgb Conc 33.6 g/dL (32-36); Mean Corpuscular Volume 90.5 fL (80-100); Mean Platelet Volume 11.4 fL (7.4-10.4); Platelet Count 160 K/uL (130-400); RDW Standard Deviation 43.1 fL (36.4-46.3); Red Blood Count 4.54 M/uL (4.2-5.4)
[2021-03-18 08:12] LABS: BUN Creatinine Ratio 24.9 (10-20); Calcium 9.1 mg/dl (8.5-10.1); Creatinine Clr Calc Pharmacy 44.3 ml/min; Est GFR (African American) 69.4 ml/min; Est GFR (Non-African American) 59.8 ml/min; Magnesium 2.3 mg/dl (1.8-2.4); Potassium 4.3 mmol/L (3.5-5.1)
--- NOTE | 2021-03-18 08:44 | XRay Report ---
TWO VIEW CHEST CLINICAL HISTORY: Pacemaker implantation. FINDINGS: PA and lateral chest radiographs are compared to study dated 03/17/2021. A 2-lead cardiac p acemaker has been placed and partially obscures the left upper chest. Leads project over the right at rial appendage and the right ventricle. The cardiomediastinal silhouette is unremarkable. The pulmona ry vasculature is noncongested. The lungs and pleural spaces are clear. There is no pneumothorax. The skeletal structures are osteopenic. The bony thorax appears intact. IMPRESSION: 1. A 2-lead cardiac pacemaker has been placed as above. No pneumothorax is seen post procedure. 2. There is no radiographic evidence of congestive failure. 3. No airspace consolidation or pleural effusion is identified. ACT 112: Negative or not required by law. Electronically signed by: Enrique Sheldon M.D. 03/18/2021 8:43 AM
[2021-03-18] MEDS ORDERED: ROSUVASTATIN CALCIUM 5 MG TAB PO SCH (09:00)
--- NOTE | 2021-03-18 10:23 | Discharge Summary ---
Date of Service March 18, 2021 Admission HPI Per Admitting Provider 71 year old female who presents to the Emergency Room with complaints of bradycardia. This started about 2 weeks ago and is persisting. The patient also notes exertional shortness of breath and lightheadedness. Patient did note some chest heaviness on the morning of admission that has resolved. Pt denies LOC, headache, fevers, chills, diaphoresis, visual changes, neck pain, chest pain, nausea, vomiting, abdominal pain, back pain, melena, hematochezia, urinary symptoms, numbness, weakness, lymphadenopathy, rash, or other complaints. Lyme testing is negative, tsh is normal Principal Diagnosis Complete heart block, symptomatic bradycardia Discharge Exam The date of discharge is the wound had some dried blood at the incision. Some mild ecchymosis. No erythema. No hematoma. Discharge Data Allergies Allergy/AdvReac Type Severity Reaction Status Date / Time No Known Drug Allergies Allergy Verified 03/17/21 08:28 pineapple Allergy Verified 03/17/21 08:28 Consultations 03/17/21 09:44 ED Decision to Admit Stat 03/17/21 17:27 Consult Cardiology Routine Procedures Performed Operation Date: 03/17/21 13:00 Actual Procedures p Pacer with A/V Leads (Dual) - Adria Jamil MD Ordered Studies 03/17/21 09:04 CL Cath Imgs for PACS use only Stat 03/17/21 11:00 EP Lab Images for PACS ONCE Hospital Course (1) CHB (complete heart block): (2) Valvular heart disease: 1. Complete heart block: On the day of admission the patient underwent implantation of a dual-chamber Medtronic pacemaker with left bundle pacing lead. The procedure was uncomplicated. The following morning chest x-ray demonstrated stable lead position without pneumothorax. A device interrogation revealed normal function of the atrial ventricular leads. 2. Valvular heart disease: Mild. No symptoms. Normal LV systolic function. This can be followed over time. 3. Hyperlipidemia: Recently started on rosuvastatin. 4. Hypertension: She does appear to have elevated blood pressures most of the time. Will defer management to the outpatient setting. Total Time Total Time Spent Total Time Spent (In Minutes): 10 Discharge Plan Discharge Items Patient Disposition: Home - Self-Care Reason For Visit: SYMPTOMATIC BRADYCARDIA COMPLETE HEART BLOCK Discharge Diagnosis: heart block Condition on Discharge: Good Activity: Per Instructions section Activity Comment: No lifting left arm above shoulder or behind neck for 6 weeks Lifting: No more than 10 pounds Bathing: Keep incision dry Bathing Comment: Keep wound dry and steri-strips intact until f/u next week Sexual Activity: Wait until after follow-up appointment Driving/Machine Use: Resume 3 days after discharge Non-emergency contact: [employer] Call non-emergency contact if: you have any medication questions, your pain is worsening, you have a fever, your wound has increased redness and your wound has increased drainage Follow-up/Referrals: Avni Gibbs MD [Primary Care Provider] - Diet: Heart Healthy Addtl Attending Provider Instructions: f/u next week in cardiology clinic for wound check (To be scheduled) Pending Studies at Discharge: No Stand-Alone Forms: My [facility] [employer], Smoking Cessation Medications and DC Order Prescriptions: Continued ibandronate [Boniva] 150 mg tablet 150 mg PO MONTHLY Qty: 3 RF: 4 rosuvastatin 5 mg tablet 5 mg PO DAILY Qty: 90 RF: 3 metronidazole 0.75 % cream 1 applic TOPICAL BID PRN (Reason: Rash) RF: 0 Women's Multivitamin 18 mg iron-400 mcg-500 mg Tablet 1 tab PO QAM RF: 0 Caltrate 600-D Plus Minerals 600 mg calcium- 800 unit-40 mg Tablet,Chewable 1 tab PO HS RF: 0 krill oil 500 mg Capsule 0 mg PO DAILY RF: 0 Discharge Orders: Discharge Order (Routine); Ordered 03/18/21 Ordered By: Adria Jamil Admission Data Admit Date/Time: 03/17/21 09:53 Attending Provider: Jose Miguel Hartley Admit Provider: Luke Quinones Primary Care Provider: Avni Gibbs Other Providers: Luke Quinones ; Adria Jamil Coding Level of Care Code 86473 OBS Care - Discharge Diagnoses CHB (complete heart block) I44.2 Valvular heart disease I38
== END 2021-03-18 12:03 | disposition home or self-care (01) | DRG 244 ==
LOC: ED 07:02 → SUATTDRO 09:53 → EDINP 09:53 → 2S 17:23